=== PATIENT | female | born 1960 | race Caucasian/White ===

== ENCOUNTER 2018-08-02 12:19 | Inpatient (IN) | payer BC, OTHER ==
[~2018-08-02] VITALS: Ht 170.2 cm; Wt 63.5 kg
[2018-08-02] MEDS ORDERED: NACL 0.9% 1,000 ML IV ONE (12:24)
[2018-08-02] MEDS ORDERED: NS 1000 ML IV.SOLN IV ONE (12:30)
[2018-08-02] MEDS ORDERED: LORazepam 2 MG/ML VIAL (FOR ER USE) IVP ONE ×3 (12:30→13:30)
[2018-08-02 13:06] LABS: BASOPHILS % (AUTO) 0.3 % (0.0-2.0); HEMATOCRIT 46.8 % (36-48); HEMOGLOBIN 15.2 g/dL (12.0-16.0); LYMPHOCYTES # (AUTO) 2.1 K/uL (1.0-5.5); LYMPHOCYTES % (AUTO) 18.5 % (20.5-51.5); MEAN CORPUSCULAR HEMOGLOBIN 30 pg (27-31); MEAN CORPUSCULAR HGB CONC 33 % (32-36); MEAN CORPUSCULAR VOLUME 91 fL (79.0-98.0); MONOCYTES # (AUTO) 0.5 K/uL (0.0-1.0); MONOCYTES % (AUTO) 4.7 % (1.7-9.3); NEUTROPHILS # (AUTO) 8.9 K/uL (1.8-7.7); NEUTROPHILS % (AUTO) 76.5 % (40.0-70.0); PLATELET COUNT (AUTO) 335 K/uL (130-430); RED BLOOD CELL COUNT(AUTO) 5.14 MIL/uL (4.2-6.2); RED CELL DISTRIBUTION WIDTH 13.4 % (9.0-15.0); WHITE BLOOD COUNT (AUTO) 11.5 K/uL (4.8-10.8)
[2018-08-02 13:13] LABS: ANION GAP 19 (5-15); CALCIUM 9.3 mg/dL (8.4-11.0); CHLORIDE 102 mmol/L (98-107); CREATININE 1.07 mg/dL (0.55-1.30); GLUCOSE 145 mg/dL (70-99); POTASSIUM 3.6 mmol/L (3.5-5.1); SODIUM SERUM 141 mmol/L (136-145); UREA NITROGEN, BLOOD 19 mg/dL (8-21)
[2018-08-02] MEDS ORDERED: DEXAMETHASONE SOD PHOSPHATE 10 MG/ML VIAL IVP ONE (13:15)
[2018-08-02 13:17] LABS: GFR AFRICAN AMERICAN 68 mL/min (>90); INR 0.9 (0.8-1.2); PROTHROMBIN TIME 9.5 SECS (9.5-12.5)
[2018-08-02 13:19] LABS: ACETAMINOPHEN < 1 ug/mL (1-30); ALANINE AMINOTRANSFERASE 52 U/L (12-78); AMYLASE 99 U/L (0-100); ASPARTATE AMINOTRANSFERASE 39 U/L (10-37); LIPASE 319 U/L (73-393); TOTAL BILIRUBIN 0.2 mg/dL (0.0-1.0)
[2018-08-02 13:26] LABS: ALCOHOL, BLOOD < 3 mg/dL (<10)
[2018-08-02 13:47] LABS: BILIRUBIN,URINE NEGATIVE (NEGATIVE); BLOOD, URINE NEGATIVE (NEGATIVE); CLARITY/URINE CLEAR (CLEAR); COLOR,URINE YELLOW (YELLOW); GLUCOSE,URINE NEGATIVE (NEGATIVE); KETONES,URINE NEGATIVE (NEGATIVE); LEUKOCYTE ESTERASE ,URINE NEGATIVE (NEGATIVE); NITRITE, URINE NEGATIVE (NEGATIVE); PROTEIN URINE NEGATIVE (NEGATIVE); UROBILINOGEN,URINE 0.2 (0.2-1.0)
[2018-08-02 14:00] LABS: BARBITURATE, URINE NEGATIVE (NEG <=200); BENZODIAZEPINE, URINE NEGATIVE (NEG <=150); CANNABINOID, URINE NEGATIVE (NEG <=50); COCAINE, URINE NEGATIVE (NEG <=150); METHAMPHETAMINES SCREEN,URINE NEGATIVE (NEG <=500); OPIATE, URINE NEGATIVE (NEG <=100); PHENCYCLIDINE SCREEN,URINE NEGATIVE (NEG <=25); UR TRICYCLIC ANTIDEPRESSANTS NEGATIVE (NEG <=300); URINE AMPHETAMINE NEGATIVE (NEG <=500); URINE METHADONE NEGATIVE (NEG <=200); URINE OXYCODONE SCREEN POSITIVE (NEG <=100); URINE PROPOXYPHENE SCREEN NEGATIVE (NEG <=300)
[2018-08-02] MEDS ORDERED: LORazepam 2 MG/ML VIAL IVP PRN ×2 (14:45→19:45)
[2018-08-02 15:29] VITALS: BP_SYST 129
[2018-08-02] MEDS ORDERED: [UNRECOGNIZED DRUG - CODE] PO ×3 (15:48→18:39)
[2018-08-02] MEDS ORDERED: DEC1 PO (15:48)
[2018-08-02] MEDS ORDERED: OXYC10TA56 PO (15:48)
[2018-08-02] MEDS ORDERED: IMI50 PO (15:54)
[2018-08-02] MEDS ORDERED: SUMAtriptan SUCCINATE 50 MG TABLET PO PRN (18:45)
[2018-08-02] MEDS ORDERED: COMMUNICATION ORDER XX ONE (18:45)
[2018-08-02] MEDS ORDERED: oxyCODONE HCL 10 MG TAB.ER.12H PO PRN (18:45)
[2018-08-02] MEDS ORDERED: ONDANSETRON HCL 4 MG/2 ML VIAL IVP PRN (19:45)
[2018-08-02] MEDS ORDERED: OXYC-580 PO (20:18)
[2018-08-02] MEDS ORDERED: [UNRECOGNIZED DRUG - OTHER] PO SCH (21:00)
[2018-08-02] MEDS: DEXAMETHASONE 1 MG TABLET (DECADRON) PO SCH (21:00)
[2018-08-02] MEDS: NORMAL SALINE 5 ML DISP.SYRIN IVF SCH (22:30)
[2018-08-02] MEDS: oxyCODONE HCL 5 MG TABLET PO PRN (22:30)
[2018-08-03 00:08] VITALS: BP_SYST 121
[2018-08-03] MEDS: NORMAL SALINE 5 ML DISP.SYRIN IVF SCH ×3 (06:33→22:46)
[2018-08-03] MEDS: oxyCODONE HCL 5 MG TABLET PO PRN (07:45)
[2018-08-03 07:52] LABS: BASOPHILS % (AUTO) 0.2 % (0.0-2.0); EOSINOPHILS % (AUTO) 0.1 % (0.0-4.0); HEMATOCRIT 41.3 % (36-48); HEMOGLOBIN 13.8 g/dL (12.0-16.0); LYMPHOCYTES # (AUTO) 3.1 K/uL (1.0-5.5); LYMPHOCYTES % (AUTO) 20.8 % (20.5-51.5); MEAN CORPUSCULAR HEMOGLOBIN 30 pg (27-31); MEAN CORPUSCULAR HGB CONC 33 % (32-36); MEAN CORPUSCULAR VOLUME 91 fL (79.0-98.0); MONOCYTES # (AUTO) 1.1 K/uL (0.0-1.0); MONOCYTES % (AUTO) 7.4 % (1.7-9.3); NEUTROPHILS # (AUTO) 10.7 K/uL (1.8-7.7); NEUTROPHILS % (AUTO) 71.5 % (40.0-70.0); PLATELET COUNT (AUTO) 311 K/uL (130-430); RED BLOOD CELL COUNT(AUTO) 4.56 MIL/uL (4.2-6.2); RED CELL DISTRIBUTION WIDTH 13.5 % (9.0-15.0); WHITE BLOOD COUNT (AUTO) 14.9 K/uL (4.8-10.8)
[2018-08-03 08:00] VITALS: BP_SYST 129
[2018-08-03 08:05] LABS: CALCIUM 9.2 mg/dL (8.4-11.0); CREATININE 0.66 mg/dL (0.55-1.30); POTASSIUM 3.5 mmol/L (3.5-5.1)
[2018-08-03 08:16] LABS: ALBUMIN 3.2 g/dL (3.4-4.8); TOTAL BILIRUBIN 0.3 mg/dL (0.0-1.0)
[2018-08-03] MEDS ORDERED: [UNRECOGNIZED DRUG - OTHER] PO SCH (09:00)
[2018-08-03] MEDS: DEXAMETHASONE 1 MG TABLET (DECADRON) PO SCH ×2 (10:06→18:45)
[2018-08-03] MEDS: SUMAtriptan SUCCINATE 50 MG TABLET PO PRN ×2 (10:06→16:57)
[2018-08-03 12:16] VITALS: BP_SYST 118
[2018-08-03] MEDS: cefTRIAXone 1 GM in D5W 50 ML IV SCH (12:56)
[2018-08-03 16:50] VITALS: BP_SYST 114
[2018-08-03] MEDS ORDERED: [UNRECOGNIZED DRUG - OTHER] PO SCH (18:17)
[2018-08-03] MEDS ORDERED: DEXAMETHASONE 1 MG TABLET (DECADRON) PO SCH (18:18)
[2018-08-03] MEDS ORDERED: [UNRECOGNIZED DRUG - OTHER] PO ONE (18:45)
[2018-08-03] MEDS ORDERED: levETIRAcetam 500 MG TABLET PO ONE (19:15)
[2018-08-03 20:00] VITALS: BP_SYST 124
[2018-08-03] MEDS: metroNIDAZOLE 500 mg/NS 100 ML IV SCH (20:32)
[2018-08-04 01:53] VITALS: BP_SYST 113
[2018-08-04] MEDS: DEXAMETHASONE 1 MG TABLET (DECADRON) PO SCH (06:24)
[2018-08-04] MEDS: NORMAL SALINE 5 ML DISP.SYRIN IVF SCH ×2 (06:24→14:00)
[2018-08-04] MEDS: oxyCODONE HCL 5 MG TABLET PO PRN (06:29)
[2018-08-04 07:31] LABS: ANION GAP 7 (5-15); CALCIUM 9.1 mg/dL (8.4-11.0); CHLORIDE 105 mmol/L (98-107); CREATININE 0.66 mg/dL (0.55-1.30); GLUCOSE 88 mg/dL (70-99); POTASSIUM 3.9 mmol/L (3.5-5.1); SODIUM SERUM 140 mmol/L (136-145); UREA NITROGEN, BLOOD 19 mg/dL (8-21)
[2018-08-04 07:40] LABS: BASOPHILS # (AUTO) 0.1 K/uL (0.0-0.2); BASOPHILS % (AUTO) 0.4 % (0.0-2.0); EOSINOPHILS % (AUTO) 0.1 % (0.0-4.0); HEMATOCRIT 45.4 % (36-48); HEMOGLOBIN 15.2 g/dL (12.0-16.0); LYMPHOCYTES # (AUTO) 2.5 K/uL (1.0-5.5); LYMPHOCYTES % (AUTO) 19.5 % (20.5-51.5); MEAN CORPUSCULAR HEMOGLOBIN 30 pg (27-31); MEAN CORPUSCULAR HGB CONC 34 % (32-36); MEAN CORPUSCULAR VOLUME 91 fL (79.0-98.0); MONOCYTES # (AUTO) 0.6 K/uL (0.0-1.0); MONOCYTES % (AUTO) 4.9 % (1.7-9.3); NEUTROPHILS # (AUTO) 9.4 K/uL (1.8-7.7); NEUTROPHILS % (AUTO) 75.1 % (40.0-70.0); PLATELET COUNT (AUTO) 332 K/uL (130-430); RED BLOOD CELL COUNT(AUTO) 5.01 MIL/uL (4.2-6.2); RED CELL DISTRIBUTION WIDTH 13.5 % (9.0-15.0); WHITE BLOOD COUNT (AUTO) 12.6 K/uL (4.8-10.8)
[2018-08-04 07:47] LABS: GFR AFRICAN AMERICAN 118 mL/min (>90)
[2018-08-04 07:51] LABS: C-REACTIVE PROTEIN QUANT < 0.2 mg/dL (0-0.5)
[2018-08-04] MEDS: metroNIDAZOLE 500 mg/NS 100 ML IV SCH (08:41)
[2018-08-04] MEDS: SUMAtriptan SUCCINATE 50 MG TABLET PO PRN (08:54)
[2018-08-04 08:56] VITALS: BP_SYST 136
[2018-08-04] MEDS ORDERED: levETIRAcetam 500 MG TABLET PO SCH (09:00)
[2018-08-04 11:02] LABS: ERYTHROCYTE SEDIMENTATION RATE 9 MM/HR (0-20)
[2018-08-04] MEDS: cefTRIAXone 1 GM in D5W 50 ML IV SCH (11:32)
[2018-08-04 12:41] VITALS: BP_SYST 148
[2018-08-04 15:35] VITALS: BP_SYST 148
== END 2018-08-04 15:55 | disposition home or self-care (01) | DRG 100 ==
LOC: SED 12:19 → STU 14:34
PROVIDERS: ADMIT Preventive Medicine Preventive Medicine/Occupational Environmental Medicine; ATTEND Preventive Medicine Preventive Medicine/Occupational Environmental Medicine
DX: G40.409 Other generalized epilepsy and epileptic syndromes, not intractable, without status epilepticus (principal); J96.00 Acute respiratory failure, unspecified whether with hypoxia or hypercapnia; C34.90 Malignant neoplasm of unspecified part of unspecified bronchus or lung; C79.31 Secondary malignant neoplasm of brain; G43.909 Migraine, unspecified, not intractable, without status migrainosus; N18.9 Chronic kidney disease, unspecified; Z85.841 Personal history of malignant neoplasm of brain; R40.2420 Glasgow coma scale score 9-12, unspecified time; R74.0 Nonspecific elevation of levels of transaminase and lactic acid dehydrogenase [LDH]; R73.9 Hyperglycemia, unspecified
CPT/HCPCS: 36415; 70450-TC; 71045; 80048; 80053; 80307; 81003; 82150-TC; 82550-TC; 83605; 83690-TC; 84484; 85025; 85610-TC; 85651-TC; 85730-TC; 86140; 87040-TC; 93005; 95816; 96361; 96374; 96375; 99285; G0378; G0480; G0481; G0482; J0696; J1100; J2060; J3490; J7030; J7060